=== PATIENT | female | born 1995 | race Caucasian/White ===

== ENCOUNTER 2017-10-16 13:36 | Observation (INO) ==
--- NOTE | 2017-10-16 14:08 | OB/GYN History & Physical ---
Date of Encounter: 10/16/17 Time of Encounter: 14:03 Assessment and Plan (1) 27 weeks gestation of Current visit: Yes Status: Acute admitted for observation (2) Vaginal bleeding during Current visit: Yes Status: Acute cbc and type and screen pending Speculum exam: No active bleeding noted. Blood clot removed for vagina. SVE: Closed History of Present Illness Chief complaint: Vaginal bleeding HPI: Ms. Kramer is a 22 year old female at 27w3d presents to labor and delivery with complaints of vaginal bleeding. Patient reports it was period like blood that started after having intercourse. Patient states bleeding started about 1300. Patient denies any blood clots. Patient reports +FM, denies contractions or leaking of fluid. Patient receives OB care in [place] but has recently moved to [place] and [place] was the closest hospital. Patient denies any complications with other than spotting in the beginning around 6 weeks. Patient states she was told her placenta was in the front and that is way she sometimes has difficulty feeling movement. Patient is unsure of her blood type. Past Med Surg Social Fam HX - Past Medical History Source: patient Medical history: no medical history Additional medical history: increased spinal fluid pressure Psychiatric history: anxiety - Past Surgical History Surgical History: other Additional surgical history: tonsils, wisdom teeth - Social History Smoking Status: Former smoker Smokeless Tobacco Status: No Alcohol use: none Drug use: none Current living situation: Home - Independent Activity Level: Independent ambulation Recent Out of Country Travel Within the Last 8 Weeks: No Exposure or Possible Exposure to Illness During Travel: No - Family History Mother Adopted: No Living Status: Still Living Hx Family Cardiac Disorders: No Hx Family Respiratory Disorders: No Hx Family Cancer: No Hx Family GI Disorders: No Hx Family Genitourinary Disorders: No Hx Family Endocrine Disorder: No Hx Family Musculoskeletal Disorders: No Hx Family Neuromuscular Disorders: No Hx Family Neurologic Disorders: No Hx Family HEENT Disorders: No Hx Family Autoimmune Disorders: No Hx Family Reproductive Disorders: No Hx Family Psychosocial Disorders: No Hx Family Medical Disorders: Yes (hypertension, anemia) Obstetrical History - Pregnancies : 1 Para: 0 Term: 0 : 0 Ab's: 0 Livin Medications and Allergies Tablet 10/16/17 [History] 3 Allergy/AdvReac Type Severity Reaction Status Date / Time No Known Allergies Allergy Verified 10/16/17 13:42 Review of System OB - Constitutional Constitutional ROS IM: no chills, no fever(s), no headache(s) - Cardiovascular Cardiovascular: no chest pain, no palpitations, no syncope - Genitourinary Genitourinary: abnormal vaginal bleeding (per HPI), no dysuria, no flank pain, no urinary frequency, no urinary urgency, no vaginal odor, no vaginal pruritis Exam - Constitutional Constitutional: well developed, well nourished, no acute distress, average body habitus - HEENT HEENT: Normocephaly, Mucus Membranes Moist - Neck Neck exam: full ROM, supple - Lungs Respiratory exam: CTAB - Cardiovascular Cardiovascular exam: RRR, +S1, +S2 - Abdomen Abdomen: Present: bowel sounds normal, gravid, non tender - Vagina Vagina: Present: discharge (moderate size blood clot was removed with swab, no active bleeding noted on speculum exam. ) - Cervix Cervix: Present: cyst noted Dilation: 0 Effacement: 0 Station: -4 - Uterus Uterus exam: Present: normal size, normal contour - Anus/Rectum Anus/Rectum: Present: normal perianal skin - Comments Comments: FHR 130 bpm moderate variability appropriate for gestational age. No contractions. Results All other labs normal. - VTE Reasons for not Prescribing Prophylaxis: Treatment not Indicated - Low risk for VTE
[2017-10-16 14:21] LABS: Basophils % 0.2 %; Eosinophils # 0.1 K/mcL (0.0-0.6); Eosinophils % 0.4 %; Hematocrit 31.9 % (35.3-44.9); Hemoglobin 11.6 g/dL (11.5-15.4); Immature Granulocytes % 0.2 % (0-4); Immature Platelets 6.1 % (1.1-6.1); Lymphocytes # 1.6 K/mcL (0.6-4.6); Lymphocytes % 12.6 %; Mean Corpuscular HGB Conc 36.4 g/dL (31.6-35.5); Mean Corpuscular Hemoglobin 33.6 pg (28.0-33.3); Mean Corpuscular Volume 92.5 fL (83.0-100.0); Mean Platelet Volume 10.8 fL (9.4-12.4); Monocytes % 7.9 %; Neutrophils # 9.8 K/mcL (1.6-8.9); Platelet Count 191 K/mcL (140-400); Red Blood Count 3.45 M/mcL (3.82-4.97); Red Cell Distribution Width 12.8 % (11.5-14.5); Segmented Neutrophils % 78.7 %
[2017-10-16 14:31] LABS: Amphetamine Screen,Urine Negative ng/mL (Cutoff=1000); Barbiturate Screen,Urine Negative ng/mL (Cutoff=200); Benzodiazepines Screen,Urine Negative ng/mL (Cutoff=200); Cannabinoid Screen,Urine Negative ng/mL (Cutoff = 50); Cocaine Screen,Urine Negative ng/mL (Cutoff= 300); Opiate Screen,Urine Negative ng/mL (Cutoff=300); Phencyclidine Screen,Urine Negative ng/mL (Cutoff=25)
--- NOTE | 2017-10-16 15:27 | Discharge Summary ---
Date of Encounter: 10/16/17 Time of Encounter: 15:27 - Discharge Diagnosis (1) 27 weeks gestation of Priority: Primary Status: Acute Comments: admitted for observation (2) Vaginal bleeding during Priority: Secondary Status: Acute Comments: Blood type: O+ no more active bleeding HBG stable patient discharged to follow up with OB provider as scheduled. - Discharge Medications Home Medications: Tablet 10/16/17 [History] Allergies/Adverse Reactions: 3 Allergy/AdvReac Type Severity Reaction Status Date / Time No Known Allergies Allergy Verified 10/16/17 13:42 Data Procedures and tests throughout hospitalization: Laboratory Tests 10/16/17 10/16/17 10/16/17 14:10 14:10 14:10 WBC 12.5 H RBC 3.45 L Hgb 11.6 Hct 31.9 L MCV 92.5 MCH 33.6 H MCHC 36.4 H RDW 12.8 Plt Count 191 MPV 10.8 Immature Gran % 0.2 Seg Neutrophils % 78.7 Lymphocytes % 12.6 Monocytes % 7.9 Eosinophils % 0.4 Basophils % 0.2 Neutrophils # 9.8 H Lymphocytes # 1.6 Monocytes # 1.0 Eosinophils # 0.1 Basophils # 0.0 Immature Plt Fraction 6.1 Urine Opiates Screen Negative Ur Barbiturates Screen Negative Ur Phencyclidine Scrn Negative Ur Amphetamines Screen Negative U Benzodiazepines Scrn Negative Urine Cocaine Screen Negative U Marijuana (THC) Screen Negative Ur Drug Screen Interp See Below Blood Type O POSITIVE Antibody Screen NEGATIVE Labs on day of discharge: Labs from last 24 hours 10/16/17 10/16/17 10/16/17 14:10 14:10 14:10 WBC 12.5 H RBC 3.45 L Hgb 11.6 Hct 31.9 L MCV 92.5 MCH 33.6 H MCHC 36.4 H RDW 12.8 Plt Count 191 MPV 10.8 Immature Gran % 0.2 Seg Neutrophils % 78.7 Lymphocytes % 12.6 Monocytes % 7.9 Eosinophils % 0.4 Basophils % 0.2 Neutrophils # 9.8 H Lymphocytes # 1.6 Monocytes # 1.0 Eosinophils # 0.1 Basophils # 0.0 Immature Plt Fraction 6.1 Urine Opiates Screen Negative Ur Barbiturates Screen Negative Ur Phencyclidine Scrn Negative Ur Amphetamines Screen Negative U Benzodiazepines Scrn Negative Urine Cocaine Screen Negative U Marijuana (THC) Screen Negative Ur Drug Screen Interp See Below Blood Type O POSITIVE Antibody Screen NEGATIVE Date of admission: 10/16/17 13:36 Primary care physician: Juan Luis Arango Discharging clinician: Haley Winters Anticipated date of discharge: 10/16/17 - Patient Status Disposition: Home, Self-Care Condition: Good Functional capacity at discharge: independent ambulation - Discharge Instructions Follow Up With: Juan Luis Arango [Primary Care Provider] - Nohemy Anguiano MD [Non-Partnered Physician] - - Diet and Activity Activity: increase activity as tolerated Diet: regular diet Hospital Course [facility] Time Attestation: Total time spent providing and/or coordinating discharge services: Time Spent: Less than 30 minutes Exam - Constitutional General appearance IM: A&O X 3, pleasant, answers questions appropriately - Other Additional findings: FHR 130 bpm moderate variability appropriate for gestational age. No contractions. No more bleeding noted on peripad. - VTE Reasons for not Prescribing Prophylaxis: Treatment not Indicated - Low risk for VTE
== END 2017-10-16 15:29 | disposition home or self-care (01) ==
LOC: 1NENULAB
PROVIDERS: ADMIT Advanced Practice Midwife; ATTEND Advanced Practice Midwife